=== PATIENT | male | born 1955 | race Caucasian/White ===

== ENCOUNTER 2020-05-12 11:31 | Emergency (ER) | payer BC ==
[~2020-05-12] VITALS: Ht 193 cm; Wt 122.5 kg
[2020-05-12 12:02] LABS: ABSOLUTE LYMPHOCYTES 0.7 thou/uL (0.8-5.3); ABSOLUTE MONOCYTES 0.3 thou/uL (0.0-1.2); ABSOLUTE NEUTROPHILS 4.3 thou/uL (1.6-8.1); BASOPHILS 0.2 %; HEMATOCRIT 46.2 % (42.0-52.0); HEMOGLOBIN 15.6 gm/dL (14.0-18.0); MCHC 33.7 g/dL (28.0-37.0); MONOCYTES 5.1 %; MPV 7.5 fl. (7.2-11.1); NUCLEATED RBCS 0 /100WBC; PLATELET COUNT* 160 thou/uL (150-400); POLYS 80.7 %; RBC 5.38 mil/uL (4.50-6.00); RDW-CV 13.1 % (10.5-14.5); WBC 5.3 thou/uL (4.0-11.0)
[2020-05-12 12:13] LABS: CALCIUM 8.5 mg/dL (8.5-10.1); CREATININE 1.1 mg/dL (0.6-1.3); POTASSIUM 3.5 mmol/L (3.5-5.1)
[2020-05-12 12:22] LABS: ALBUMIN 3.6 g/dL (3.4-5.0); TOTAL BILIRUBIN 0.6 mg/dL (<0.1-1.0); TOTAL PROTEIN 7.7 g/dL (6.4-8.2)
[2020-05-12] MEDS ORDERED: VENTOLIN HFA 1818 GM INH (14:44)
[2020-05-12] MEDS ORDERED: CITRATE OF MAG296 M1 PO (14:44)
[2020-05-12] MEDS ORDERED: PREDNISONE 20 M20 MG PO (14:44)
[2020-05-12 14:45] LABS: URINE BILIRUBIN NEGATIVE (Negative); URINE BLOOD NEGATIVE (Negative); URINE COLOR YELLOW; URINE GLUCOSE-RANDOM NEGATIVE (Negative); URINE KETONES 1+ (Negative); URINE LEUKOCYTES-REFLEX NEGATIVE (Negative); URINE NITRITE-REFLEX NEGATIVE (Negative); URINE PROTEIN 2+ (Negative); URINE SPECIFIC GRAVITY >= 1.030 (1.005-1.030); URINE UROBILINOGEN 0.2 E.U./dl (0.2-1.0)
[2020-05-12 14:47] LABS: URINE CLARITY HAZY
[2020-05-12] MEDS ORDERED: ZOFRAN ODT4 MG PO (14:48)
[2020-05-12 14:55] LABS: BACTERIA-REFLEX None Seen /HPF (None Seen); CASTS None Seen /LPF (None Seen); CRYSTALS None Seen /LPF (None Seen); MUCUS 0-3 Light strn/LPF (None Seen); SQUAMOUS 0-3 Few /LPF (0-3); URINE RBC None Seen /HPF (0-2); URINE WBC-REFLEX None Seen /HPF (0-5)
[2020-05-12 15:11] VITALS: BP 141/85
--- NOTE | 2020-05-12 16:17 | EKG ---
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[id number] Requested By: Fina Logan Order Number: [id number] MD: Sagar Brown Measurements Intervals [place] Rate: 99 P: [place]: QRS: -16 QRSD: 99 T: 39 QT: 339 QTc: 435 Interpretive Statements Sinus rhythm Borderline left axis deviation Abnormal R-wave progression, early transition Baseline wander in lead(s) III No previous ECG available for comparison Electronically Signed On 05-12-2020 16:17:24 [employer] by Sagar Brown [email or web address] <ELECTRONICALLY SIGNED> By: Sagar Brown MD, [facility] 05/12/20 1617 1210 1210 Sagar Brown MD, [facility] /EPI
== END 2020-05-12 15:11 | disposition left against medical advice (07) ==
LOC: M.ERS 11:31
PROVIDERS: Nurse Practitioner Family
DX: U07.1 COVID-19 (principal); I48.91 Unspecified atrial fibrillation; K59.00 Constipation, unspecified